=== PATIENT | male | born 1990 | race Caucasian/White ===

== ENCOUNTER 2019-09-03 20:18 | Emergency (ER) | payer OTHER, SELFPAY ==
[~2019-09-03] VITALS: Ht 185.4 cm; Wt 113.4 kg
[2019-09-03 20:20] VITALS: Ht 185.4 cm; Wt 113.4 kg
[2019-09-03 23:27] VITALS: BP 111/68
== END 2019-09-03 23:13 | disposition home or self-care (01) ==
LOC: ED 20:18
DX: U07.1 COVID-19 (principal)
CPT/HCPCS: 36600; 87804; Q0092; U0003-CS